=== PATIENT | female | born 1985 | race African-American/Black ===

== ENCOUNTER 2025-01-17 10:47 | Emergency (ER) | payer BC, MEDICAID, OTHER ==
[~2025-01-17] VITALS: Ht 157.5 cm; Wt 57.3 kg
--- NOTE | 2025-01-17 11:27 | ED.PDOC ---
History of Present Illness HPI Comments This is a 39-year-old female who comes in with chief complaint of what she states as somewhat altered mental status. The patient denies any nausea, vomiting or diarrhea. The patient states that her family member woke her up and she seems somewhat confused. Over the last today she has also been somewhat forgetful. She has been having increased urination but no polydipsia. She states that she has been having some dizziness as well. The patient denies any head trauma or any other complaints. The patient denies any history of this in the past. Time Seen by MD: 10:54 Reviewed Notes: Nurses Notes, Medications, Allergies (No allergies to medic ations) Allergies: Coded Allergies: NO KNOWN ALLERGIES (Unverified , 01/17/25) Information Source: Patient Mode of Arrival: Ambulatory Severity: Moderate Timing: Hours Duration: Since onset Prehospital treatment: None Associated signs and symptoms Dizziness with forgetfulness and increased urination Past Medical History PAST MEDICAL HISTORY: Denies Surgical History: Denies all surgeries STOCK PREPARER History: No Pertinent STOCK PREPARER History Family History Family History: Family hx of HTN Social History Smoker: Cigarettes Alcohol: Occasionally Drugs: Denies Drug Use Lives In: Home Physical Exam General Appearance: Mild Distress HEENT: Normal ENT Inspection, Pharynx Normal, TMs Normal Neck: Full Range of Motion, Non-Tender, Normal, Normal Inspection Respiratory: Chest Non-Tender, Lungs Clear, No Accessory Muscle Use, No Respiratory Distress, Normal Breath Sounds Cardiovascular: No Edema, No JVD, No Murmur, No Gallop, Normal Peripheral Pulses, Regular Rate/Rhythm Breast Exam: Deferred Gastrointestinal: No Organomegaly, Non Tender, No Pulsatile Mass, Normal Bowel Sounds, Soft Genitalia: Deferred Pelvic: Deferred Rectal: Deferred Extremities: No calf tenderness, Normal capillary refill, Normal inspection, Normal range of motion, Non-tender, No pedal edema Musculoskeletal : Apperance: Normal 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 Was a procedure done?: No Differential Dx Considerations may include: Dizziness, electrolyte imbalance, dehydration X-Ray, Labs, Meds, VS Vital Signs Date Time Temp Pulse Resp B/P (MAP) Pulse Ox O2 Delivery O2 Flow Rate FiO2 01/17/25 11:38 98.4 121 16 157/107 (124) 97 98.4 01/17/25 11:28 108 Lab Test 01/17/25 11:25 01/17/25 11:18 Range/Units Urine Color Yellow Yellow Urine Clarity Hazy H Clear Urine pH 6.0 5.0-9.0 Urine Specific [place] 1.011 1.001-1.035 Urine Protein Negative Negative Urine Ketones Trace Negative Urine Blood 2+ H Negative /uL Urine Nitrite Negative Negative Urine Bilirubin Negative Negative Urine Urobilinogen Normal Negative mg/dL Urine Leukocyte Esterase Negative Negative /uL Urine RBC 24 0 - 4 /hpf Urine Microscopic WBC 2 0-5 /HPF Urine Squamous Epithelial Cells Few <5 /hpf Urine Bacteria Few H None Seen /hpf Urine Glucose Normal Normal mg/dL POC Glucose 112 H 70-106 mg/dl White Blood Count 5.7 4.4-10.8 10^3/uL Red Blood Count 3.20 L 4.0-5.20 10^6/uL Hemoglobin 13.8 12.2-16.2 g/dL Hematocrit 39.7 36.0-46.0 % Mean Corpuscular Volume 124.1 H 80.0-100.0 fL Mean Corpuscular Hemoglobin 43.1 H 28.0-32.0 pg Mean Corpuscular Hemoglobin Concent 34.7 32.0-36.0 g/dL Red Cell Distribution Width 13.9 11.8-14.3 % Platelet Count 298 140-450 10^3/uL Mean Platelet Volume 7.2 6.9-10.8 fL Neutrophils (%) (Auto) 74.8 37.0-80.0 % Lymphocytes (%) (Auto) 15.9 10.0-50.0 % Monocytes (%) (Auto) 8.8 0.0-12.0 % Eosinophils (%) (Auto) 0.0 0.0-7.0 % Basophils (%) (Auto) 0.5 0.0-2.0 % Neutrophils # (Auto) 4.2 1.6-8.6 10 ^3/uL Lymphocytes # (Auto) 0.9 0.4-5.4 10 ^3/uL Monocytes # (Auto) 0.5 0-1.3 10 ^3/uL Eosinophils # (Auto) 0 0-0.8 10 ^3/uL Basophils # (Auto) 0 0-0.2 10 ^3/uL Nucleated Red Blood Cells 0.1 % Sodium Level 144 136-145 mmol/L Potassium Level 3.7 3.5-5.1 mmol/L Chloride Level 106 98-107 mmol/L Carbon Dioxide Level 22 20-31 mmol/L Anion Gap 16 H 5-15 Blood Urea Nitrogen 7 L 9-23 mg/dL Creatinine 0.69 0.550-1.02 mg/dL Glomerular Filtration Rate Calc 112 >90 mL/min BUN/Creatinine Ratio 10.1 10.0-20.0 Serum Glucose 106 74-106 mg/dL Calcium Level 9.8 8.7-10.4 mg/dL CT Head indicates: No CT evidence of acute intracranial abnormality. The urine test is negative The chemistry panel is within normal limits The CBC is within normal limits The patient is being discharged The patient will follow up with the primary care doctor The patient's diagnosis is viral syndrome. Images Reviewed?: Images reviewed and evaluated by me Time of 1ST Reevaluation: 11:27 Reevaluation 1ST: Unchanged Patient Education/Counseling: Diagnosis, Treatment, Prognosis, Need For Follow Up Family Education/Counseling: No Family Present SEPSIS Sepsis Screen Physician Orders Heplock Iv (01/17/25 11:08) Healthcare Or Medical (01/17/25 11:08) Blood Pressure (01/17/25 11:08) Pulse Oximetry (01/17/25 11:08) Electrocardigram (01/17/25 11:08) Head Without Contrast (01/17/25 11:08) Vital Signs Date Time Temp Pulse Resp B/P (MAP) Pulse Ox O2 Delivery O2 Flow Rate FiO2 01/17/25 11:38 98.4 121 16 157/107 (124) 97 98.4 01/17/25 11:28 108 Laboratory Tests Test 01/17/25 11:18 White Blood Count 5.7 10^3/uL (4.4-10.8) Departure 1 Departure Time of Disposition: 13:39 Impression: Primary Impression: Viral syndrome Disposition: 01 HOME / SELF CARE / HOMELESS Condition: Fair Discharged With: Self Critical Care Note Critical Care Time?: No Stability Stability form required: No Heart Score Heart Score: Heart Score Response (Comments) Value History N/A 0 EKG N/A 0 Age N/A 0 Risk Factors N/A 0 Troponin N/A 0 Total 0 I personally scribed for CLAY MAYBERRY MD ([email or web address]) on 01/17/25 at 13:15. Electronically submitted by George Renner ([email or web address]). CLAY MAYBERRY MD Jan 17, 2025 11:27
[2025-01-17 11:32] LABS: Basophils # (auto) 0 10 ^3/uL (0-0.2); Eosinophils # (auto) 0 10 ^3/uL (0-0.8); Hemoglobin 13.8 g/dL (12.2-16.2); Mean Corpuscular Volume 124.1 fL (80.0-100.0); Nucleated Red Blood Cells % 0.1 %; Red Cell Distribution Width 13.9 % (11.8-14.3); White Blood Cell 5.7 10^3/uL (4.4-10.8)
[2025-01-17 11:34] LABS: Basophils % (auto) 0.5 % (0.0-2.0); Hematocrit 39.7 % (36.0-46.0); Lymphocytes # (auto) 0.9 10 ^3/uL (0.4-5.4); Lymphocytes % (auto) 15.9 % (10.0-50.0); Mean Corpuscular Hemoglobin 43.1 pg (28.0-32.0); Mean Corpuscular Hgb Conc. 34.7 g/dL (32.0-36.0); Monocytes # (auto) 0.5 10 ^3/uL (0-1.3); Monocytes % (auto) 8.8 % (0.0-12.0); Neutrophils # (auto) 4.2 10 ^3/uL (1.6-8.6); Neutrophils % (auto) 74.8 % (37.0-80.0); Platelet Count (auto) 298 10^3/uL (140-450)
[2025-01-17 11:38] LABS: Chloride 106 mmol/L (98-107); Potassium 3.7 mmol/L (3.5-5.1); Sodium 144 mmol/L (136-145)
[2025-01-17 11:39] LABS: Anion Gap 16 (5-15); Calcium 9.8 mg/dL (8.7-10.4); Carbon Dioxide 22 mmol/L (20-31)
[2025-01-17 11:44] LABS: BUN/Creatinine Ratio 10.1 (10.0-20.0); Blood Urea Nitrogen 7 mg/dL (9-23); Glucose 106 mg/dL (74-106)
--- NOTE | 2025-01-17 12:02 | DVH ---
CLINICAL INFORMATION: 39 years old, Female; weakness. TECHNIQUE: Axial imaging was obtained through the brain without contrast. Coronal and sagittal reform atted images were obtained, reviewed, and stored. Images were reviewed in brain and bone windows. Al l CT scans at this medical facility are performed using dose modulation techniques as appropriate to a performed exam including the following: Automated exposure control was utilized; adjustment of the MA and/or KV according to patient size; and use of iterative reconstruction technique. CTDIvol = 54.6 3 mGy DLP = 1076.7 mGy-cm COMPARISON: None FINDINGS: There is no acute intracranial hemorrhage. No mass effect or midline shift. The ventricles and sulci are within normal limits in size for age. Basal cisterns are patent. The calvarium is unre markable. Retention cyst versus polyp in the left maxillary sinus. IMPRESSION: No CT evidence of acute intracranial abnormality.
[2025-01-17 12:44] LABS: Urine Bacteria FEW /hpf (None Seen); Urine Blood 2+ /uL (Negative); Urine Protein, UAD Negative (Negative); Urine Specific Gravity 1.011 (1.001-1.035); Urine Squamous Epithelial Cell FEW /hpf (<5); Urine Urobilinogen Normal (Negative); Urine WBC 2 /HPF (0-5)
[2025-01-17 12:49] LABS: Urine Clarity Hazy (Clear); Urine Color Yellow (Yellow)
[2025-01-17] MEDS: cloNIDine HCL 0.1 MG TAB PO ONE (14:03)
[2025-01-17 15:04] VITALS: BP 145/96; PULSE 86; RESP 18; TEMP 97.9; O2SAT 98
--- NOTE | 2025-01-23 08:34 | ECG ---
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
== END 2025-01-17 15:03 | disposition home or self-care (01) ==
LOC: ER 10:47
DX: B34.9 Viral infection, unspecified (principal); F17.210 Nicotine dependence, cigarettes, uncomplicated
CPT/HCPCS: 36415; 70450; 80048; 81001; 82947; 82962; 85025; 93005

== ENCOUNTER → 2025-01-30 | Outpatient (CLI) | payer BC ==
[2025-01-30 12:21] LABS: Hematocrit 37.1 % (36.0-46.0); Hemoglobin 13.2 g/dL (12.2-16.2); Mean Corpuscular Hemoglobin 44.0 pg (28.0-32.0); Mean Corpuscular Volume 123.4 fL (80.0-100.0); Nucleated Red Blood Cells % 0.3 %
[2025-01-30 12:35] LABS: INR 0.95 (0.9-1.15); Prothrombin Time 10.1 sec (9.3-11.8)
[2025-01-30 12:53] LABS: Alanine Aminotransferase 32 U/L (7-40); Albumin 3.9 g/dL (3.2-4.8); Alkaline Phosphatase 99 U/L (46-116); Anion Gap 9 (5-15); BUN/Creatinine Ratio 10.0 (10.0-20.0); Bilirubin, Total 1.1 mg/dL (0.2-1.0); Blood Urea Nitrogen 6 mg/dL (9-23); Calcium 9.4 mg/dL (8.7-10.4); Carbon Dioxide 25 mmol/L (20-31); Chloride 104 mmol/L (98-107); Glucose 107 mg/dL (74-106); Potassium 3.7 mmol/L (3.5-5.1); Sodium 138 mmol/L (136-145); Total Protein 6.6 g/dL (5.7-8.2)
[2025-01-30 12:55] LABS: Free T4 (Free Thyroxine) 1.04 ng/dL (0.89-1.76)
[2025-01-30 13:58] LABS: Amphetamine Screen, Urine Neg (NEGATIVE); Barbiturate Scree,Urine Neg (NEGATIVE); Benzodiazephine Screen, Urine Neg (NEGATIVE); Cannabinoid Screen, Urine Neg (NEGATIVE); Cocaine Screen, Urine Neg (NEGATIVE); Opiate Scree,Urine Neg (NEGATIVE); Phencyclidine Screen, Urine Neg (NEGATIVE)
== END | disposition home or self-care (01) ==
LOC: LAB 12:01
PROVIDERS: ATTEND Internal Medicine
DX: D75.89 Other specified diseases of blood and blood-forming organs (principal); R41.0 Disorientation, unspecified; Z82.49 Family history of ischemic heart disease and other diseases of the circulatory system
CPT/HCPCS: 36415; 80053; 80307; 82607; 84439; 84443; 85025; 85610

== ENCOUNTER 2025-04-04 08:46 | Emergency (ER) | payer BC ==
[~2025-04-04] VITALS: Ht 154.9 cm; Wt 68.4 kg
--- NOTE | 2025-04-04 09:19 | ED.PDOC ---
Altered Mental Status HPI Comments This is a 39-year-old female with past medical history of high blood pressure brought in by EMS due to altered mental status. Per patient's daughter at the bedside, today morning at 7:30 a.m. she found her on the floor next to the bed, was drooling and shaking. Upon ER arrival, patient is alert, oriented to place and person, but disoriented to time. Patient could not provide history and does not have any active complaint. Patient also had same episode 1.5 month back, the workup showed no significant finding. EKG: Sinus tachycardia with no significant ST or T-wave changes. 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 Allergies: Coded Allergies: NO KNOWN ALLERGIES (Unverified , 01/17/25) Mode of Arrival: EMS Past Medical History PAST MEDICAL HISTORY: HTN, Denies Surgical History: Denies all surgeries VETERINARY RADIOLOGIST History: No Pertinent VETERINARY RADIOLOGIST History Family History Family History: Family hx of HTN Social History Smoker: Cigarettes Alcohol: Occasionally Drugs: Denies Drug Use Lives In: Home Constitutional: denies: chills, diaphoresis, fatigue, fever, malaise, sweats, weakness, others EENTM: denies: blurred vision, double vision, ear bleeding, ear discharge, ear drainage, ear pain, ear ringing, eye pain, eye redness, hearing loss, mouth pain, mouth swelling, nasal discharge, nose bleeding, nose congestion, nose pain, photophobia, tearing, throat pain, throat swelling, voice changes, others Respiratory: denies: cough, hemoptysis, orthopnea, SOB at rest, shortness of breath, SOB with excertion, stridor, wheezing, others Cardiovascular: denies: chest pain, dizzy spells, diaphoresis, Dyspnea on exertion, edema, irregular heart beat, left arm pain, lightheadedness, palpitati ons, PND, syncope, others Gastrointestinal: denies: abdomen distended, abdominal pain, blood streaked bowels, constipated, diarrhea, dysphagia, difficulty swallowing, hematemesis, melena, nausea, poor appetite, poor fluid intake, rectal bleeding, rectal pain, vomiting, others Genitourinary: denies: abnormal vagina bleeding, burning, dyspareunia, dysuria, flank pain, frequency, hematuria, incontinence, pain, , vagina discharge, urgency, others Neurological: denies: dizziness, fainting, headache, left sided numbness, left sided weakness, numbness, paresthesia, pre-existing deficit, right sided numbness, right sided weakness, seizure, speech problems, tingling, tremors, weakness, others Musculoskeletal: denies: back pain, gout, joint pain, joint swelling, muscle pain, muscle stiffness, neck pain, others Integumetry: denies: bruises, change in color, change in hair/nails, dryness, laceration, lesions, lumps, rash, wounds, others Allergic/Immunocompromised: denies: Difficulty Healing, Frequent Infections, Hives, Itching, others Hematologic/Lymphatic: denies: anemia, blood clots, easy bleeding, easy bruisin g, swollen glands, others Endocrine: denies: excessive hunger, excessive sweating, excessive thirst, excessive urination, flushing, intolerance to cold, intolerance to heat, unexplained weight gain, unexplained weight loss, others Psychiatric: denies: anxiety, bipolar disorder, depression, hopeless, panic disorder, schizophrenia, sleepless, suicidal, others Physical Exam General Appearance: No Apparent Distress, Normal HEENT: Normal ENT Inspection, Pharynx Normal, TMs Normal Neck: Full Range of Motion, Non-Tender, Normal, Normal Inspection Respiratory: Chest Non-Tender, Lungs Clear, No Accessory Muscle Use, No Respir atory Distress, Normal Breath Sounds Cardiovascular: No Edema, No JVD, No Murmur, No Gallop, Normal Peripheral Pulses, Regular Rate/Rhythm Breast Exam: Deferred Gastrointestinal: No Organomegaly, Non Tender, No Pulsatile Mass, Normal Bowel Sounds, Soft Genitalia: Deferred Pelvic: Deferred Rectal: Deferred Extremities: No calf tenderness, Normal capillary refill, Normal inspection, Normal range of motion, Non-tender, No pedal edema Musculoskeletal : Apperance: Normal 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 Was a procedure done? Was a procedure done?: No Differential Diagnosis (ALOC) Differential Diagnosis: Encephalopathy, Sepsis, CVA, Drug Overdose, ETOH Intoxication X-Ray, Labs, Meds, VS Vital Signs Date Time Temp Pulse Resp B/P (MAP) Pulse Ox O2 Delivery O2 Flow Rate FiO2 04/04/25 12:20 98.6 100 14 138/100 (113) 99 98.6 04/04/25 09:55 115 13 98 Room Air* 0 21 04/04/25 09:55 98.2 115 13 134/96 (109) 98 98.2 04/04/25 09:06 112 04/04/25 08:53 97.7 121 14 140/82 98 97.7 Lab Test 04/04/25 12:00 04/04/25 09:35 04/04/25 09:05 04/04/25 08:54 Range/Units White Blood Count 11.0 H 10.4 4.4-10.8 10^3/uL Red Blood Count 3.08 L 3.37 L 4.0-5.20 10^6/uL Hemoglobin 12.2 13.6 12.2-16.2 g/dL Hematocrit 35.0 #L 39.0 36.0-46.0 % Mean Corpuscular Volume 113.8 H 115.6 H 80.0-100.0 fL Mean Corpuscular Hemoglobin 39.6 H 40.3 H 28.0-32.0 pg Mean Corpuscular Hemoglobin Concent 34.8 34.8 32.0-36.0 g/dL Red Cell Distribution Width 17.8 H 17.5 H 11.8-14.3 % Platelet Count 292 333 140-450 10^3/uL Mean Platelet Volume 7.1 7.1 6.9-10.8 fL Neutrophils (%) (Auto) 78.3 81.7 H 37.0-80.0 % Lymphocytes (%) (Auto) 13.6 10.2 10.0-50.0 % Monocytes (%) (Auto) 7.8 7.9 0.0-12.0 % Eosinophils (%) (Auto) 0.0 0.0 0.0-7.0 % Basophils (%) (Auto) 0.3 0.2 0.0-2.0 % Neutrophils # (Auto) 8.6 8.5 1.6-8.6 10 ^3/uL Lymphocytes # (Auto) 1.5 1.1 0.4-5.4 10 ^3/uL Monocytes # (Auto) 0.9 0.8 0-1.3 10 ^3/uL Eosinophils # (Auto) 0 0 0-0.8 10 ^3/uL Basophils # (Auto) 0 0 0-0.2 10 ^3/uL Nucleated Red Blood Cells 0.0 0.1 % Sodium Level Pending 143 136-145 mmol/L Potassium Level Pending 3.6 3.5-5.1 mmol/L Chloride Level Pending 107 98-107 mmol/L Carbon Dioxide Level Pending 16 L 20-31 mmol/L Anion Gap Pending 20 H 5-15 Blood Urea Nitrogen Pending 7 L 9-23 mg/dL Creatinine Pending 0.74 0.550-1.02 mg/dL Glomerular Filtration Rate Calc Pending 104 >90 mL/min BUN/Creatinine Ratio Pending 9.5 L 10.0-20.0 Serum Glucose Pending 95 74-106 mg/dL Lactic Acid Level Pending 6.8 *H 0.4-2.0 mmol/L Calcium Level Pending 9.2 8.7-10.4 mg/dL Total Bilirubin Pending 1.1 H 0.2-1.0 mg/dL Aspartate Amino Transferase (AST) Pending 29 13-40 U/L Alanine Aminotransferase (ALT) Pending 22 7-40 U/L Alkaline Phosphatase Pending 96 46-116 U/L Creatine Kinase Pending Total Protein Pending 7.6 5.7-8.2 g/dL Albumin Pending 4.3 3.2-4.8 g/dL Magnesium Level 1.9 1.6-2.6 mg/dL Troponin I High Sensitivity < 3 L </=34 ng/L Beta HCG, Quantitative 0.2 L 1.5-4.2 mIU/mL Plasma/Serum Blood Alcohol 10.7 H <10 mg/dL Urine Color Light-yellow Yellow Urine Clarity Turbid H Clear Urine pH 6.0 5.0-9.0 Urine Specific [place] 1.020 1.001-1.035 Urine Protein Negative Negative Urine Ketones Trace Negative Urine Blood 1+ H Negative /uL Urine Nitrite Negative Negative Urine Bilirubin Negative Negative Urine Urobilinogen Normal Negative mg/dL Urine Leukocyte Esterase 1+ Negative /uL Urine RBC 5 0 - 4 /hpf Urine Microscopic WBC 8 H 0-5 /HPF Urine Squamous Epithelial Cells Few <5 /hpf Urine Bacteria Few H None Seen /hpf Urine Mucus Few None Seen Urine Glucose Normal Normal mg/dL Urine Opiates Screen Neg NEGATIVE Urine Fentanyl Screen Neg NEGATIVE Urine Barbiturates Screen Neg NEGATIVE Urine Phencyclidine Screen Neg NEGATIVE Urine Amphetamines Screen Neg NEGATIVE Urine Benzodiazepines Screen Neg NEGATIVE Urine Cocaine Screen Neg NEGATIVE Urine Cannabinoids Screen Neg NEGATIVE POC Glucose 114 H 70-106 mg/dl Current Medications Medications (Trade) Dose Ordered Sig/Silvano Route Start Time Stop Time Status Last Admin Sodium Chloride 1,000 ml @ 1,000 mls/hr Q1H ONCE IV 04/04/25 09:15 04/04/25 10:14 DC 04/04/25 09:58 Thiamine HCl 100 mg ONCE ONCE IV 04/04/25 09:15 04/04/25 09:50 DC 04/04/25 10:48 Folic Acid 1 mg/ Dextrose 50.2 ml @ 200.8 mls/ hr ONCE ONCE INJ 04/04/25 09:15 04/04/25 09:50 DC 04/04/25 11:30 Sodium Chloride 1,000 ml @ 1,000 mls/hr Q1H ONCE IV 04/04/25 12:00 04/04/25 12:59 04/04/25 12:23 Time of 1ST Reevaluation: 12:24 Reevaluation 1ST: Improved Patient Education/Counseling: Diagnosis, Treatment, Prognosis, Need For Follow Up Family Education/Counseling: Diagnosis, Treatment, Prognosis, Need For Follow Up Comments Patient came to the hospital due to altered mental status. Patient was vitally within normal limits. Physical examination showed no significant finding including no motor/sensory deficits. CBC within normal limit CMP showed raised lactic acid at 6.6 Urinalysis showed UTI picture Patient was given IV fluid, folic acid, thiamine, and Rocephin. On subsequent checkup, patient was feeling better. Patient had no active complaint and no confusion. Patient discharged home with cefdinir 300 mg 3 times daily for 5 days Follow up with the PCP. SEPSIS Sepsis Screen Date sepsis recognized/suspect: Apr 04, 2025 Time Sepsis recognized/suspect: 855 Recent Procedure: No On Antibiotic Therapy: No Respiratory Rate >20: No Heart Rate >90: Yes Temp<36 C (96.8 F) or >38.3 C: No SBP <90 or MAP <65 mmHG: No New Acute Mental Status Change: No Is the patient on CPAP, BIPAP,: No Physician Orders Electrocardigram (04/04/25 09:23) Head Without Contrast (04/04/25 09:24) Creatine Kinase (04/04/25 11:25) Comprehensive Metabolic Panel (04/04/25 11:25) Sodium Chloride 0.9% (04/04/25 12:00) Vital Signs Date Time Temp Pulse Resp B/P (MAP) Pulse Ox O2 Delivery O2 Flow Rate FiO2 04/04/25 12:20 98.6 100 14 138/100 (113) 99 98.6 04/04/25 09:55 115 13 98 Room Air* 0 21 04/04/25 09:55 98.2 115 13 134/96 (109) 98 98.2 04/04/25 09:06 112 04/04/25 08:53 97.7 121 14 140/82 98 97.7 Laboratory Tests Test 04/04/25 09:35 04/04/25 12:00 Lactic Acid Level 6.8 mmol/L (0.4-2.0) *H Pending White Blood Count 10.4 10^3/uL (4.4-10.8) 11.0 10^3/uL (4.4-10.8) H Medications Medications Dose Ordered Sig/Silvano Route Start Time Stop Time Status Last Admin Dose Admin Folic Acid 1 mg/ Dextrose 50.2 ml @ 200.8 mls/ hr ONCE ONCE INJ 04/04/25 09:15 04/04/25 09:50 DC 04/04/25 11:30 Sodium Chloride 1,000 ml @ 1,000 mls/hr Q1H ONCE IV 04/04/25 09:15 04/04/25 10:14 DC 04/04/25 09:58 Sodium Chloride 1,000 ml @ 1,000 mls/hr Q1H ONCE IV 04/04/25 12:00 04/04/25 12:59 04/04/25 12:23 Thiamine HCl 100 mg ONCE ONCE IV 04/04/25 09:15 04/04/25 09:50 DC 04/04/25 10:48 Departure 1 Departure Time of Disposition: 12:27 Impression: Primary Impression: Altered mental status Additional Impression: UTI (urinary tract infection) Disposition: 01 HOME / SELF CARE / HOMELESS Condition: Fair Critical Care Note Critical Care Time?: Yes (35 min-critical care time only) Stability Stability form required: No Heart Score Heart Score: Heart Score Response (Comments) Value History Slightly Suspicious 0 EKG Normal 0 Age <45 0 Risk Factors 1 or 2 risk factors 1 Troponin N/A 0 Total 1 JADA SINGH Apr 04, 2025 09:19
[2025-04-04 09:55] VITALS: PULSE 115; RESP 13; O2SAT 98
[2025-04-04] MEDS: SODIUM CHLORIDE 0.9% 1,000 ML IV ONE ×2 (09:58→12:23)
[2025-04-04 10:05] LABS: Urine Protein, UAD Negative (Negative)
[2025-04-04 10:28] LABS: Amphetamine Screen, Urine Neg (NEGATIVE); Barbiturate Scree,Urine Neg (NEGATIVE); Benzodiazephine Screen, Urine Neg (NEGATIVE); Cannabinoid Screen, Urine Neg (NEGATIVE); Cocaine Screen, Urine Neg (NEGATIVE); Opiate Scree,Urine Neg (NEGATIVE); Phencyclidine Screen, Urine Neg (NEGATIVE)
[2025-04-04 10:30] LABS: Hematocrit 39.0 % (36.0-46.0); Hemoglobin 13.6 g/dL (12.2-16.2); Mean Corpuscular Hemoglobin 40.3 pg (28.0-32.0); Mean Corpuscular Volume 115.6 fL (80.0-100.0); Nucleated Red Blood Cells % 0.1 %
[2025-04-04 10:33] LABS: Alanine Aminotransferase 22 U/L (7-40); Albumin 4.3 g/dL (3.2-4.8); Alkaline Phosphatase 96 U/L (46-116); Anion Gap 20 (5-15); BUN/Creatinine Ratio 9.5 (10.0-20.0); Calcium 9.2 mg/dL (8.7-10.4); Chloride 107 mmol/L (98-107); Glucose 95 mg/dL (74-106); Magnesium 1.9 mg/dL (1.6-2.6); Potassium 3.6 mmol/L (3.5-5.1); Sodium 143 mmol/L (136-145); Total Protein 7.6 g/dL (5.7-8.2)
[2025-04-04 10:34] LABS: Bilirubin, Total 1.1 mg/dL (0.2-1.0); Blood Urea Nitrogen 7 mg/dL (9-23); Carbon Dioxide 16 mmol/L (20-31)
[2025-04-04] MEDS: THIAMINE 100mg/ml INJ (200mg/2ml VIAL) IV ONE (10:48)
[2025-04-04 11:22] LABS: Lactic Acid w/Reflex 6.8 mmol/L (0.4-2.0)
[2025-04-04] MEDS: FOLIC ACID 1 MG in D5W 5% 50 ML INJ ONE (11:30)
--- NOTE | 2025-04-04 12:07 | DVH ---
CLINICAL INFORMATION: Acute loss of consciousness. TECHNIQUE: Axial imaging was obtained through the brain without contrast. Coronal and sagittal reform atted images were obtained, reviewed, and stored. Images were reviewed in brain and bone windows. Al l CT scans at this medical facility are performed using dose modulation techniques as appropriate to a performed exam including the following: Automated exposure control was utilized; adjustment of the MA and/or KV according to patient size; and use of iterative reconstruction technique. CTDIvol = 53.4 9 mGy DLP = 966.28 mGy-cm COMPARISON: CT HEAD WITHOUT CONTRAST on DOS: 01/17/25 FINDINGS: There is no acute intracranial hemorrhage. No mass effect or midline shift. The ventricles and sulci are within normal limits in size for age. Basal cisterns are patent. The calvarium is unre markable. Paranasal sinuses and mastoid air cells are clear. IMPRESSION: No CT evidence of acute intracranial abnormality.
[2025-04-04 12:21] LABS: Hematocrit 35.0 % (36.0-46.0); Hemoglobin 12.2 g/dL (12.2-16.2); Mean Corpuscular Hemoglobin 39.6 pg (28.0-32.0); Mean Corpuscular Volume 113.8 fL (80.0-100.0); Nucleated Red Blood Cells % 0.0 %
[2025-04-04] MEDS ORDERED: CEFD300C2 PO (12:29)
[2025-04-04 12:38] LABS: Alanine Aminotransferase 19 U/L (7-40); Albumin 3.7 g/dL (3.2-4.8); Alkaline Phosphatase 85 U/L (46-116); Anion Gap 12 (5-15); BUN/Creatinine Ratio 9.1 (10.0-20.0); Carbon Dioxide 21 mmol/L (20-31); Glucose 87 mg/dL (74-106); Potassium 3.6 mmol/L (3.5-5.1); Sodium 144 mmol/L (136-145); Total Protein 6.6 g/dL (5.7-8.2)
[2025-04-04 12:39] LABS: Bilirubin, Total 1.2 mg/dL (0.2-1.0); Blood Urea Nitrogen 6 mg/dL (9-23); Calcium 8.3 mg/dL (8.7-10.4); Chloride 111 mmol/L (98-107); Creatine Kinase IFCC 197 U/L (34-145)
[2025-04-04 14:00] VITALS: BP 140/89; PULSE 107; RESP 14; TEMP 98.9; O2SAT 100
--- NOTE | 2025-04-04 14:14 | ECG ---
[facility] Test Date: 2025-04-04 Test Time: 09:03:52 Pat Name: SLAVA SINCLAIR Department: Room: Gender: F Rn Surgical Pcu: [place] : 1985 Requested By: JADA SINGH Order Number: [id number] Reading MD: Sal Clements Measurements Intervals [place] Rate: 112 P: 59 SD: 164 QRS: 91 QRSD: 106 T: 34 QT: 323 QTc: 441 Interpretive Statements Sinus tachycardia Borderline right axis deviation Low voltage, extremity leads Electronically Signed On 04-09-2025 19:15:28 PDT by Sal Clements Please click the below link to view image of tracing.
== END 2025-04-04 14:50 | disposition home or self-care (01) ==
LOC: EDUNIT# 08:46 → EDBD 08:46 → ER 08:46
DX: R40.4 Transient alteration of awareness (principal); N39.0 Urinary tract infection, site not specified; F17.210 Nicotine dependence, cigarettes, uncomplicated; F10.90 Alcohol use, unspecified, uncomplicated; I10 Essential (primary) hypertension; Y90.9 Presence of alcohol in blood, level not specified
CPT/HCPCS: 36415; 70450; 80053; 80307; 80320; 81001; 82550; 82947; 83605; 83735; 84484; 84702; 85025; 93005; 96361; 96365; 96375; 99285; J0696; J3411; J7030; J7060; 82962